=== PATIENT | male | born 1980 | race Two or more races ===

== ENCOUNTER → 2016-10-23 | Outpatient (CLI) | payer OTHER ==
--- NOTE | 2016-10-23 11:04 | REP ---
Left ankle four views: There are no comparisons. There is no fracture or dislocation. There is mild cortical irregularity on the medial malleolus. This could be a developmental variant or an old post-traumatic change. There is spurring along the superior margin of the navicula talar articulation has a degenerative change. Mineralization is normal. No calcifications. Impression: Mild cortical irregularity of the articular surface of the medial malleolus, congenital variation versus old post-traumatic change. No acute fracture or dislocation. There is spurring along the superior margin of the navicular talar articulation has a degenerative change. Otherwise, negative left ankle. Signed by Gilbert Hurd MD 10/23/2016 10:55 A
== END ==
LOC: M LRY 10:20
PROVIDERS: ATTEND Physician Assistant
DX: M19.072 Primary osteoarthritis, left ankle and foot (principal); M77.32 Calcaneal spur, left foot
CPT/HCPCS: 73610; G0463

== ENCOUNTER 2017-08-06 06:54 | Emergency (ER) | payer OTHER ==
[2017-08-06] MEDS: HYDROmorphone HCL 1 MG/ML SYRINGE (J1170) IV (08:15)
[2017-08-06] MEDS: KETOROLAC 30 MG/ML VIAL (J1885) IV (08:32)
[2017-08-06] MEDS: LORazepam 2 MG/ML VIAL (J2060) IV (08:32)
== END 2017-08-06 10:28 | disposition home or self-care (01) ==
LOC: M ED 06:54
DX: S39.012A Strain of muscle, fascia and tendon of lower back, initial encounter (principal); X50.9XXA Other and unspecified overexertion or strenuous movements or postures, initial encounter; Y92.138 Other place on military base as the place of occurrence of the external cause; Y93.89 Activity, other specified; Y99.1 Military activity; M19.072 Primary osteoarthritis, left ankle and foot; Z98.890 Other specified postprocedural states
CPT/HCPCS: J1885

== ENCOUNTER → 2017-08-13 | Outpatient (CLI) | payer OTHER | LOC: M RAD 10:16 | DX: M79.671 Pain in right foot (principal) | CPT/HCPCS: 78315 ==

== ENCOUNTER → 2017-11-30 | Outpatient (CLI) | payer OTHER ==
[~2017-11-30] MED LIST: E-Z-GAS II EFFERVESCENT PACKET (SODIUM BICARB./CITRIC ACID/SIMETHICONE) As Ordered; E-Z-HD 98% w/w 340GM SUSP BTL As Ordered; E-Z-PAQUE 96% w/w SUSP 176GM BTL As Ordered
== END ==
LOC: M RAD 09:30
DX: J32.0 Chronic maxillary sinusitis (principal); K21.9 Gastro-esophageal reflux disease without esophagitis
CPT/HCPCS: 74220

== ENCOUNTER 2018-03-15 09:49 | Emergency (ER) | payer OTHER ==
[2018-03-15 10:38] LABS: BASO % 0.4 % (0.0-1.0); EOS # 0.7 10^3/uL (0.0-0.50); EOS % 6.7 % (0.0-3.0); HEMOGLOBIN 16.8 g/dl (13.5-17.5); IMMATURE GRANULOCYTE % 0.3 % (0-3.0); LYMPH # 1.8 10^3/uL (1.5-4.5); MEAN CORPUSCULAR HGB CONC 32.9 g/dl (32.0-36.5); MEAN CORPUSCULAR VOLUME 87.9 fl (80.0-96.0); MONO # 0.8 10^3/uL (0.0-0.8); MONO % 7.6 % (0.0-5.0); NEUTROPHILS # 7.5 10^3/uL (1.8-7.7); PLATELET COUNT, AUTOMATED 370 10^3/uL (150-450); RED CELL DISTRIBUTION WIDTH 12.2 % (11.5-14.5); WHITE BLOOD COUNT 10.9 10^3/uL (4.0-10.0)
[2018-03-15] MEDS: KETOROLAC 30 MG/ML VIAL (J1885) IV (10:39)
[2018-03-15] MEDS: methylPREDNISolone INJ 125 MG/2 ML VIAL (J2930) IV (10:39)
[2018-03-15 11:00] LABS: ANION GAP 5 MEQ/L (8-16); BLOOD UREA NITROGEN 11 MG/DL (7-18); CALCIUM LEVEL 9.5 MG/DL (8.5-10.1); CARBON DIOXIDE LEVEL 32 MEQ/L (21-32); CHLORIDE LEVEL 105 MEQ/L (98-107); CREATININE FOR GFR 1.28 MG/DL (0.70-1.30); GLOMERULAR FILTRATION RATE > 60.0 (>60); GLUCOSE, FASTING 94 MG/DL (70-100); POTASSIUM SERUM 4.3 MEQ/L (3.5-5.1); SODIUM LEVEL 142 MEQ/L (136-145)
[2018-03-15 11:01] LABS: ERYTHROCYTE SEDIMENTATION RATE 14 mm/hr (0-15)
[2018-03-15] MEDS: LIDOCAINE 1% MDV 20ML VIAL IM (12:45)
[2018-03-15 13:26] LABS: BODY FLUID RHEUMATOID SCREEN NEGATIVE (NEGATIVE)
[2018-03-15 13:37] LABS: CRYSTALS, BODY FLUID CA PYROPHOSPHATE (NONE SEEN); SOURCE, BODY FLUID CRYSTALS LFT KNEE
[2018-03-15 13:47] LABS: RBC BODY FLUID < 2 10^3/uL (<2)
[2018-03-15 13:57] LABS: APPEARANCE, BODY FLUID CLOUDY (CLEAR); SOURCE, BODY FLUID LFT KNEE; SYNOVIAL FLUID COLOR YELLOW (YELLOW); WBC BODY FLUID 48840 /uL (0-10)
[2018-03-15 13:58] LABS: BF DIFF IF INDICATED? YES (NO)
[2018-03-15 14:03] LABS: SOURCE, BODY FLUID GLUCOSE LFT KNEE; SOURCE, BODY FLUID URIC ACID LFT KNEE; URIC ACID, BODY FLUID 9.7 MG/DL (NOT ESTABLISHED)
[2018-03-17 00:07] LABS: Lyme Disease IgG/IgM Antibodie <0.91 ISR (0.00-0.90); Lyme Disease IgM Ab Quantitati <0.80 index (0.00-0.79)
== END 2018-03-15 13:45 | disposition home or self-care (01) ==
LOC: M ED 09:49
DX: M25.462 Effusion, left knee (principal); R93.7 Abnormal findings on diagnostic imaging of other parts of musculoskeletal system
CPT/HCPCS: J1885

== ENCOUNTER → 2018-04-13 | Outpatient (CLI) | payer OTHER | LOC: M RAD 18:00 | DX: S83.282A Other tear of lateral meniscus, current injury, left knee, initial encounter (principal); M22.42 Chondromalacia patellae, left knee; M25.462 Effusion, left knee; M71.22 Synovial cyst of popliteal space [Baker], left knee; X58.XXXA Exposure to other specified factors, initial encounter; Y92.9 Unspecified place or not applicable; M25.562 Pain in left knee | CPT/HCPCS: 73721 ==

== ENCOUNTER 2018-07-27 12:37 | Emergency (ER) | payer OTHER ==
[~2018-07-27] VITALS: Ht 180.3 cm; Wt 116.2 kg
[~2018-07-27 12:37] MED LIST changes: -E-Z-GAS II EFFERVESCENT PACKET (SODIUM BICARB./CITRIC ACID/SIMETHICONE) As Ordered; -E-Z-HD 98% w/w 340GM SUSP BTL As Ordered; -E-Z-PAQUE 96% w/w SUSP 176GM BTL As Ordered; +IBUP-1022 PO; +KETO10TAB PO; +ROBA750T4 PO
[2018-07-27] MEDS ORDERED: NAPR-885 PO (12:50)
[2018-07-27] MEDS ORDERED: ALLO100T PO (12:50)
[2018-07-27] MEDS ORDERED: CYCL10TA PO (13:31)
[2018-07-27] MEDS ORDERED: IBUP-1022 PO (13:32)
[2018-07-27 13:34] VITALS: BP 134/74
[2018-07-27] MEDS ORDERED: IBUPROFEN 600 MG TAB PO ONE (13:45)
--- NOTE | 2018-07-27 13:48 | REP ---
LEFT ELBOW, FOUR VIEWS: There is no evidence of an acute fracture, dislocation or intrinsic bone disease. IMPRESSION: No fracture or dislocation. Electronically Signed by Gilbert Basilio MD 07/27/2018 04:55 P
== END 2018-07-27 13:49 | disposition home or self-care (01) ==
LOC: M ED 12:37
DX: S46.312A Strain of muscle, fascia and tendon of triceps, left arm, initial encounter (principal); X50.9XXA Other and unspecified overexertion or strenuous movements or postures, initial encounter; Y92.89 Other specified places as the place of occurrence of the external cause; Y93.B2 Activity, push-ups, pull-ups, sit-ups; M10.9 Gout, unspecified; Z79.899 Other long term (current) drug therapy

== ENCOUNTER → 2018-08-05 | Outpatient (CLI) | payer OTHER ==
[~2018-08-05] MED LIST changes: +ALLO100T PO; +CYCL10TA PO; +NAPR-885 PO
--- NOTE | 2018-08-08 12:35 | REP ---
MRI LEFT FOOT WITH IV GADOLINIUM: HISTORY: Left foot pain. Comparison is made with noncontrast MRI study of the left foot from July 19, 2018 done at another facility. The patient is referred for postcontrast imaging. According to the requisition, the noncontrast study showed "isointense lobulated structure and edema at the 4th intermetatarsal space, possible atypical perineural fibrosis". Also reviewed are radiographs of the left foot and ankle from June 29, 2018. GADOLINIUM ENHANCEMENT DOSE: 20 mL of intravenous ProHance. Axial coronal and sagittal post-gadolinium enhanced T1-weighted fat sat images are acquired. 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 There is a small area of gadolinium enhancement in the soft tissues along the volar aspect of the proximal 4th and proximal 5th metatarsals in the adjacent soft tissues. No intraosseous gadolinium enhancement is seen. This is felt to correspond with a subtle area of T2 hyperintensity on the previous noncontrast MR study and what is felt to be compatible with inflammatory change. No other abnormal gadolinium enhancement is appreciated. IMPRESSION: There is gadolinium enhancement in the ill-defined area of soft tissue in the proximal and volar aspect of the 4th intermetatarsal space. This felt to correspond with the area of edema seen on noncontrast study. Electronically Signed by Bonifacio Mae MD 08/08/2018 05:33 P
== END ==
LOC: M PLARAD 14:39
PROVIDERS: ATTEND Physician Assistant
DX: M79.672 Pain in left foot (principal)